=== PATIENT | male | born 1950 | race Caucasian/White ===

== ENCOUNTER 2021-02-23 08:53 | Emergency (ER) | payer OTHER ==
[~2021-02-23] VITALS: Ht 180.3 cm; Wt 89.5 kg
[2021-02-23 09:05] VITALS: TEMP 97.5
[2021-02-23] MEDS ORDERED: NORCO 325 MG-51 TAB PO (09:51)
[2021-02-23] MEDS ORDERED: CRUTCHES MC (09:52)
[2021-02-23 10:43] VITALS: BP 130/74; PULSE 50
== END 2021-02-23 10:43 | disposition home or self-care (01) ==
LOC: COL.ER 08:53
DX: S82.842A Displaced bimalleolar fracture of left lower leg, initial encounter for closed fracture (principal); X50.1XXA Overexertion from prolonged static or awkward postures, initial encounter; Y93.01 Activity, walking, marching and hiking